=== PATIENT | male | born 1980 | race Caucasian/White ===

== ENCOUNTER 2020-05-22 12:27 | Emergency (ER) | payer OTHER, SELFPAY ==
--- NOTE | 2020-05-22 12:59 | ED.DENTAL ---
HPI - Dental/Oral General Chief complaint: Dental/Oral Stated complaint: abcess tooth Source: patient Mode of arrival: ambulatory Limitations: no limitations History of Present Illness HPI Narrative: Patient presents today with complaints of dental pain. Patient has an obvious abscess on the left upper dental line. Patient states that he got tired of the abscess sterilized a safety pin and poked it yesterday. He does state that he got a significant amount of drainage out of the abscess and that there was improvement after that drainage. Currently her his face is still swollen and he states that he was having trouble sleeping last night, and knows that he needs any antibiotics. He has no allergies and no other complaints. MD Complaint: tooth pain Teeth map: 1. teeth broken down to gum line, abscess seen. pt has already opened area and it is draining Onset (ago): day(s) Duration: constant Severity: moderate Relieving factors: nothing Context: history of dental caries and poor dental care Associated symptoms: gum swelling Related Data Allergies Allergy/AdvReac Type Severity Reaction Status Date / Time No Known Allergies Allergy Verified 05/22/20 12:57 Review of Systems Constitutional: Constitutional: Reports no additional constitutional complaints, Denies chills, Denies fatigue, Denies fever(s) and Denies weakness Eyes: Eyes: Reports no additional eye complaints ENT: Denies system reviewed and no additional complaints, except as documented, Reports as per HPI, Denies dysphagia, Denies vertigo, Denies dizziness, Denies epistaxis, Denies nasal congestion and Denies sore throat Cardiovascular: Cardiovascular: Denies as per HPI, Denies no additional cardiovascular complaints, Denies chest pain, Denies rapid heart rate, Denies radiating jaw, neck or arm pain and Denies slow heart rate Respiratory: Respiratory: Denies as per HPI, Denies no additional respiratory complaints, Denies chest congestion, Denies cough, Denies dyspnea and Denies wheezing Gastrointestinal: Gastrointestinal: Denies as per HPI, Denies no additional gastrointestinal complaints, Denies abdominal pain, Denies bloating, Denies constipation, Denies heartburn, Denies diarrhea, Denies nausea and Denies vomiting Musculoskeletal: Musculoskeletal: Denies no additional musculoskeletal complaints, Denies as per HPI, Denies back pain, Denies myalgias, Denies arthralgias, Denies joint swelling and Denies muscle cramps Neurologic: Denies system reviewed and no additional complaints, except as documented, Denies as per HPI, Denies confusion, Denies vertigo, Denies dizziness, Denies syncope, Denies headache(s), Denies focal weakness, Denies numbness and Denies weakness Psychiatric: Psychiatric: Denies no additional psychiatric complaints, Denies as per HPI, Denies anxiety, Denies depression, Denies homicidal ideation and Denies suicidal ideation Endocrine: Endocrine: Denies no additional endocrine complaints, Denies as per HPI, Denies excessive sweating, Denies fatigue, Denies polydipsia and Denies polyuria Hematologic/Lymphatic: Hematologic/Lymphatic: Denies no additional hematologic/lymphatic complaints, Denies as per HPI, Denies easy bleeding and Denies easy bruising [facility] Social History Social History (Updated 05/22/20 @ 13:03 by Sandrine Milner MD) Smoking status: Current every day smoker Alcohol intake: former Substance use type: does not use Occupation/Education: occupation Additional occupation/education comments: laboror Exam Const: General: no acute distress and alert Orientation/consciousness: patient oriented x3 HENMT: Face and sinus: abnormal facial exam (facial swelling over left cheek) Eyes: Conjunctivae: conjunctivae normal Pupils: Equal, round and reactive pupils present Neck: Neck: normal visual inspection Chest: Chest palpation & inspection: normal inspection of the chest Resp: Effort & Inspection: normal respiratory effort
[2020-05-22 13:00] VITALS: BP 142/100; PULSE 77; RESP 14; TEMP 37.1; O2SAT 97
== END 2020-05-22 13:25 | disposition home or self-care (01) ==
PROVIDERS: Emergency Provider Emergency Medicine
DX: K02.9 Dental caries, unspecified (principal)
CPT/HCPCS: 99283